=== PATIENT | male | born 1935 | race Caucasian/White ===

== ENCOUNTER 2017-03-03 08:54 | Inpatient (IN) | payer OTHER ==
[~2017-03-03] VITALS: Ht 177.8 cm; Wt 78.0 kg
[2017-03-03 08:54] VITALS: BP_SYST 105
--- NOTE | 2017-03-03 08:54 | NUR ---
BIB CARE BLS from home. Placed in room 05. Placed on correctional therapy teacher, blood pressure machine and pulse oximeter. To gown for exam. Side rails up. Report given to AMOR Olivas.
[2017-03-03] MEDS ORDERED: METO25TA6 PO (09:20)
[2017-03-03] MEDS ORDERED: FURO-149 PO (09:20)
[2017-03-03] MEDS ORDERED: MELA3TAB37 PO (09:20)
[2017-03-03] MEDS ORDERED: BUDE6HFA INH (09:20)
[2017-03-03] MEDS ORDERED: LORA10TA7 PO (09:20)
[2017-03-03] MEDS ORDERED: LEVO100T9 PO (09:20)
[2017-03-03] MEDS ORDERED: BENZ100C67 PO (09:20)
[2017-03-03] MEDS ORDERED: POTA20TA83 PO (09:20)
[2017-03-03] MEDS ORDERED: METO5TAB8 PO (09:20)
[2017-03-03] MEDS ORDERED: MORP10SO PO (09:20)
[2017-03-03] MEDS ORDERED: SPIR25TA4 PO (09:20)
[2017-03-03] MEDS ORDERED: TAMS0.4C96 PO (09:20)
[2017-03-03] MEDS ORDERED: TRAZ-126 PO (09:20)
--- NOTE | 2017-03-03 09:20 | NUR ---
Medication reconciliation completed with information provided by . Any prior medication reconciliation on file was reviewed and corrected.
--- NOTE | 2017-03-03 09:29 | NUR ---
Dr. Barroso at bedside for evaluation
--- NOTE | 2017-03-03 09:30 | NUR ---
Pt AAOx3, able to verbalize needs, unable to ambulate. Pt c/o intermittent back pain 05/30 that started few days ago. BLE with multiple bruises and swelling, non pitting. Buttock/sacral area noted with redness and 1 cm open wound with minor bleed, covered with dressing. Pt's states pt received morphine 0.5 mg this morning, but pain was unrelieved. No other obvious deformities. No other complaints or injuries per pt or noted.
[2017-03-03] MEDS ORDERED: HYDROmorphone 1 MG INJ. 1 MG/ML AMPUL IVP ONE (10:00)
[2017-03-03] MEDS ORDERED: NACL 0.9% 1,000 ML IV ONE (10:00)
--- NOTE | 2017-03-03 10:15 | NUR ---
Pt off unit to radiology.
--- NOTE | 2017-03-03 11:00 | NUR ---
Patient return to unit from radiology. Tolerated well.
[2017-03-03 11:09] LABS: BASOPHILS % (AUTO) 0.4 % (0.0-2.0); EOSINOPHILS # (AUTO) 0.1 K/uL (0.0-0.4); EOSINOPHILS % (AUTO) 1.3 % (0.0-4.0); HEMATOCRIT 25.6 % (36-54); HEMOGLOBIN 8.4 g/dL (14.0-18.0); LYMPHOCYTES # (AUTO) 0.4 K/uL (1.0-5.5); LYMPHOCYTES % (AUTO) 7.4 % (20.5-51.5); MEAN CORPUSCULAR HEMOGLOBIN 30 pg (27-31); MEAN CORPUSCULAR HGB CONC 33 % (32-36); MEAN CORPUSCULAR VOLUME 91 fL (79.0-98.0); MONOCYTES # (AUTO) 0.7 K/uL (0.0-1.0); MONOCYTES % (AUTO) 13.6 % (1.7-9.3); NEUTROPHILS # (AUTO) 3.9 K/uL (1.8-7.7); NEUTROPHILS % (AUTO) 77.3 % (40.0-70.0); PLATELET COUNT (AUTO) 240 K/uL (130-430); RED BLOOD CELL COUNT(AUTO) 2.81 MIL/uL (4.2-6.2); RED CELL DISTRIBUTION WIDTH 17.5 % (9.0-15.0); WHITE BLOOD COUNT (AUTO) 5.1 K/uL (4.8-10.8)
[2017-03-03 11:18] LABS: ANION GAP 5 (5-15); CALCIUM 8.8 mg/dL (8.4-11.0); CHLORIDE 94 mmol/L (98-107); GLUCOSE 128 mg/dL (70-99); POTASSIUM 5.9 mmol/L (3.5-5.1); SODIUM SERUM 129 mmol/L (136-145); UREA NITROGEN, BLOOD 71 mg/dL (8-21)
[2017-03-03 11:24] LABS: ALANINE AMINOTRANSFERASE 15 U/L (12-78); ALBUMIN 2.9 g/dL (3.4-4.8); ASPARTATE AMINOTRANSFERASE 27 U/L (10-37); TOTAL BILIRUBIN 0.7 mg/dL (0.0-1.0)
--- NOTE | 2017-03-03 11:30 | NUR ---
Repositioned pt to side with pillow. Tolerated well.
[2017-03-03 11:36] LABS: BILIRUBIN,URINE NEGATIVE (NEGATIVE); BLOOD, URINE NEGATIVE (NEGATIVE); CLARITY/URINE CLEAR (CLEAR); COLOR,URINE YELLOW (YELLOW); GLUCOSE,URINE NEGATIVE (NEGATIVE); KETONES,URINE NEGATIVE (NEGATIVE); LEUKOCYTE ESTERASE ,URINE 1+ (NEGATIVE); NITRITE, URINE NEGATIVE (NEGATIVE); PROTEIN URINE NEGATIVE (NEGATIVE)
[2017-03-03 11:57] LABS: BACTERIA,URINE RARE /HPF (None Seen); RBC,URINE 0-3 /HPF (0-3)
--- NOTE | 2017-03-03 12:05 | NUR ---
notified NA 129, K 5.9. EKG done
--- NOTE | 2017-03-03 12:35 | NUR ---
reminded NA 129, K 5.9, awaiting orders.
--- NOTE | 2017-03-03 12:50 | NUR ---
Patient will be admitted to care of Dr. Cortés. Admitted to med surg unit.
--- NOTE | 2017-03-03 13:00 | NUR ---
reminded NA 129, K 5.9, awaiting orders.
--- NOTE | 2017-03-03 13:34 | NUR ---
Transfer to [facility]. IV present no sign or symptom of infiltration. Dr. Cortés aware of NA and K.
--- NOTE | 2017-03-03 13:47 | NUR ---
ADMISSION: The patient, DIANE GARCIA, 81 y/o, M admitted by ARACELY CLEVELAND MD, was given written information regarding hospital policies, unit procedures and contact persons. .
[2017-03-03 14:00] VITALS: BP_SYST 100
[2017-03-03 16:09] VITALS: BP_SYST 92
--- NOTE | 2017-03-03 16:10 | NUR ---
NOTE: PATIENT IS RESTING COMFORTABLY IN BED. NO S/S OF DISTRESS OR SOB. PATIENT IS AWAKE AND ALERT, ABLE TO EXPRESS NEEDS, AND ASK FOR ASSISTANCE. IS AT BEDSIDE. WAITING TO TALK TO DR. CLEVELAND FOR ORDERS. CALL LIGHT IN REACH, BED IN LOWEST POSITION, AND WILL CONTINUE TO MONITOR.
--- NOTE | 2017-03-03 16:20 | NUR ---
WOUND EVALUATION: Late note for 1620 secondary to patient care. Wound Consult received from Dr. Cortés. Thank you, Dr. Cortés, for the consult. Patient received in a Ladson Bed with an Isoflex TRUE mattress, awake, alert, and oriented x 3. Patient is unable to turn in bed independently. Satinder Score is a 15. Past Medical History: Multiple falls, recent weight loss of over 30 lbs in one month, Sacral area pressure ulcer, CHF, chronic kidney disease, hypertension, COPD, hypothyroidism, depression, and back and neck surgeries. Recent Labs: WBC 5.1, RBC 2.81, hemoglobin 8.4, hematocrit 25.6, sodium 129, potassium 5.9, chloride 94, BUN 71, creatinine 2.60, glucose 128, alkaline phosphatase 355, BNP 498, albumin 2.9. Intrinsic factors that delay wound healing: CHF, COPD, chronic kidney disease, and hypoalbuminemia. Extrinsic factors that delay wound healing: Decreased mobility. Microbiology: Urine culture in progress. Right upper extremity has multiple skin tears. Wound Assessment: 1) Sacral Area/Buttock (superior aspect of Gluteal Sulcus): Prior stage III pressure ulcer, present on admission. Wound bed is 95% yellow tissue, 5% pink tissue. No odor, no drainage. Measures 1.2 cm x 0.5 cm x 0.2 cm. Recommend: Cleanse wound with normal saline. Place moisture barrier cream onto latia-wound. Put Venelex ointment onto wound bed. Cover with foam dressing. Perform wound care daily, and as needed for dressing soiling or dislodgement. 2) Buttock: Multiple small areas of non-intact skin with small scabs/eschar, present on admission. Left buttock has scant sanguineous drainage. The areas were too small to measure. Recommend: Cleanse site with mild soap and water. Pat dry. Place moisture barrier cream onto involved areas. Perform site care qid, and as needed for soiling. 3) Mid Back at T10 Spinal Level: Blanchable red discolored area, present on admission. Recommend: Cover with foam dressing. Perform site care daily, and as needed for dressing soiling or dislodgement. Do not place patient flat on his back at any time. 4) Bilateral Heels: Blanchable redness, present on admission. Recommend: Offload, elevate and float bilateral heels with pillows lengthwise at all times. Also recommend: Encourage and assist patient with repositioning side to side only every 2 hours with pillow support, and off-load pressure areas with pillows for pressure re-distribution. Offload, elevate and float bilateral heels with pillows lengthwise at all times. Perform skin care and monitor skin integrity Q shift. Use moisture barrier cream on buttocks and other moisture susceptible areas QID and as needed for soiling. Maintain patient on a low air-loss mattress.
--- NOTE | 2017-03-03 16:58 | NUR ---
CONSULTATION: REASON FOR CONSULT: CONSULTING PHYSICIAN: RAVEN LOPEZ MD ORDERED BY: ARACELY CLEVELAND MD SPOKE WITH CA FROM EXCHANGE
[2017-03-03] MEDS ORDERED: MORPHINE SULFATE 10 MG/5 ML ORAL SOL. UDC PO SCH (17:00)
[2017-03-03] MEDS ORDERED: METOLAZONE 5 MG TABLET PO SCH (17:00)
[2017-03-03] MEDS ORDERED: SODIUM POLYSTYRENE SULFONATE 15 GM/60 ML UDBTL PO ONE (17:00)
--- NOTE | 2017-03-03 17:05 | NUR ---
CONSULTATION: REASON FOR CONSULT: RF CONSULTING PHYSICIAN: JUAN CARLOS MIR Z MD ORDERED BY: ARACELY CLEVELAND MD SPOKE WITH KANDICE FROM EXCHANGE AND SAID DR SOLER IS SHIP ENGINES OPERATING ENGINEER FOR DR LOPEZ
--- NOTE | 2017-03-03 18:14 | NUR ---
NOTE: PATIENT IS RESTING COMFORTABLY IN BED. NO S/S OF DISTRESS OR SOB. DR. CLEVELAND WAS IN TO SEE THE PATIENT. ORDERS WERE PLACED. IS AT BEDSIDE. IV IS PATENT. CALL LIGHT IN REACH, BED IN LOWEST POSITION, AND WILL GIVE REPORT TO NIGHT NURSE.
[2017-03-03 19:00] VITALS: BP_SYST 110
[2017-03-03 20:17] LABS: IRON (SERUM) 37 mcg/dL (59-158)
[2017-03-03 20:18] LABS: TOTAL IRON BIND. CAPACITY 221 ug/dL (250-450)
[2017-03-03] MEDS: METOPROLOL TARTRATE 25 MG TABLET PO SCH (21:00)
[2017-03-03] MEDS ORDERED: BUDESONIDE/FORMOTEROL 160-4.5 mCg, 6 GM INHALER INH SCH (21:00)
[2017-03-03] MEDS ORDERED: FUROSEMIDE 40 MG TABLET PO SCH (21:00)
--- NOTE | 2017-03-03 21:30 | NUR ---
paged paged Dr Cortés [facility] . s/w Carla.
[2017-03-03] MEDS: MORPHINE SULFATE 10 MG/5 ML ORAL SOL. UDC PO PRN (22:39)
[2017-03-03] MEDS: FUROSEMIDE 40 MG/4 ML VIAL IVP SCH (22:41)
[2017-03-03] MEDS: LEVOTHYROXINE SODIUM 0.1 MG TABLET PO SCH (22:42)
[2017-03-03] MEDS: TAMSULOSIN HCL 0.4 MG CAP PO SCH (22:42)
[2017-03-03] MEDS: traZODone HCL 50 MG TABLET (DESYREL) PO SCH (22:42)
[2017-03-03] MEDS: BENZONATATE 100 MG CAPSULE (TESSALON) PO SCH (22:43)
[2017-03-03 23:31] VITALS: BP_SYST 105
[2017-03-04] MEDS: MORPHINE SULFATE 10 MG/5 ML ORAL SOL. UDC PO PRN ×5 (02:18→23:59)
--- NOTE | 2017-03-04 06:54 | NUR ---
pt.presented constipation x5 days per the pt's recall.kayexalate was administered:K+ value:5.9 the medications induced multiple stools:initial stool:wash basin:recorded formed amount:5000 ml.foul odor was paged i conveyed to the foul odor but formed stool: did not deem it necessary to order stool:c-diff.i have administered morphine:10mg/5ml elixir x3 to the pt;pt.had c/o back: lower.pt.has provided stool sample:ob,and urine sample:u/cx.collected.room air:o2 sat%=96.call light/telephone placed w/in the pt's reach.
[2017-03-04 07:07] LABS: BASOPHILS % (AUTO) 0.6 % (0.0-2.0); EOSINOPHILS % (AUTO) 0.7 % (0.0-4.0); HEMOGLOBIN 8.7 g/dL (14.0-18.0); LYMPHOCYTES # (AUTO) 0.3 K/uL (1.0-5.5); LYMPHOCYTES % (AUTO) 5.3 % (20.5-51.5); MEAN CORPUSCULAR HEMOGLOBIN 30 pg (27-31); MEAN CORPUSCULAR HGB CONC 33 % (32-36); MEAN CORPUSCULAR VOLUME 91 fL (79.0-98.0); MONOCYTES # (AUTO) 0.8 K/uL (0.0-1.0); MONOCYTES % (AUTO) 14.2 % (1.7-9.3); NEUTROPHILS # (AUTO) 4.3 K/uL (1.8-7.7); NEUTROPHILS % (AUTO) 79.2 % (40.0-70.0); PLATELET COUNT (AUTO) 249 K/uL (130-430); RED BLOOD CELL COUNT(AUTO) 2.85 MIL/uL (4.2-6.2); WHITE BLOOD COUNT (AUTO) 5.4 K/uL (4.8-10.8)
[2017-03-04 07:21] LABS: ALANINE AMINOTRANSFERASE 12 U/L (12-78); ALBUMIN 2.7 g/dL (3.4-4.8); ANION GAP 6 (5-15); ASPARTATE AMINOTRANSFERASE 26 U/L (10-37); CALCIUM 8.7 mg/dL (8.4-11.0); CHLORIDE 93 mmol/L (98-107); CHOLESTEROL 112 mg/dL (<200); CREATININE 2.27 mg/dL (0.55-1.30); GLUCOSE 134 mg/dL (70-99); HDL CHOLESTEROL 33 mg/dL (>45); LDL CHOLESTEROL 65 mg/dL (<100); PHOSPHORUS 5.3 mg/dL (2.7-4.5); POTASSIUM 4.3 mmol/L (3.5-5.1); SODIUM SERUM 129 mmol/L (136-145); THYROID STIMULATING HORMONE 3.38 uIu/mL (0.34-4.82); TOTAL BILIRUBIN 0.8 mg/dL (0.0-1.0); TOTAL PROTEIN, SERUM 8.7 g/dL (6.4-8.3); TRIGLYCERIDES 82 mg/dL (30-150); UREA NITROGEN, BLOOD 65 mg/dL (8-21)
[2017-03-04 07:51] LABS: IRON (SERUM) 36 mcg/dL (59-158); TOTAL IRON BIND. CAPACITY 211 ug/dL (250-450)
[2017-03-04 08:00] VITALS: BP_SYST 91
[2017-03-04] MEDS: METOPROLOL TARTRATE 25 MG TABLET PO SCH ×2 (08:23→21:34)
[2017-03-04] MEDS: FUROSEMIDE 40 MG/4 ML VIAL IVP SCH ×2 (08:24→21:36)
[2017-03-04] MEDS: BENZONATATE 100 MG CAPSULE (TESSALON) PO SCH ×3 (08:28→21:35)
[2017-03-04] MEDS: FLUTICASONE/VILANTEROL 1 EACH BLST.W.DEV INH SCH (08:51)
[2017-03-04] MEDS: BALSAM PERU/CASTOR OIL 60 GM OINT...G. TP SCH (08:51)
--- NOTE | 2017-03-04 11:02 | NUR ---
PATIENT REPOSITIONED. STATES HE HAS RIGHT HIP PAIN R/T POSITIONING. GIVEN MORPHINE FOR PAIN WELL
--- NOTE | 2017-03-04 11:23 | NUR ---
Nutrition Update Satinder Scale 12 noted. Pt admitted for decubitus ulcer. Diet: cardiac BMI: 24.8 kg/m2 RD to follow per nutrition care standards.
[2017-03-04] MEDS ORDERED: AZITHROMYCIN 250 MG TABLET PO ONE (11:45)
--- NOTE | 2017-03-04 12:04 | NUR ---
DC PLANNING: RECEIVED A DC PLAN --[facility] EVALU[facility]. FAXED CLINICALS TO [facility] FAX# [phone], TEL# [phone]. STILL AWAITING CONSULTS.
--- NOTE | 2017-03-04 12:15 | NUR ---
AWAITING ORDERED AND SCHEDULED ANTIBIOTICS FROM PHARMACY
[2017-03-04 12:39] VITALS: BP_SYST 107
[2017-03-04] MEDS: IPRATROPIUM/ALBUTEROL SULFATE 3 ML AMPUL.NEB INH SCH ×2 (13:00→20:13)
[2017-03-04] MEDS: PIPERACILLIN/TAZO 2.25G/DEX-IS 50 ML IV SCH ×3 (13:15→23:51)
--- NOTE | 2017-03-04 13:18 | NUR ---
PATIENT IS VERY LETHARGIC, UNABLE TO SWALLOW SAFELY. HOLDING LUNCH AND PO MEDICATION UNTIL MORPHINE WEARS OFF AND PATIENT IS MORE ALERT. FAMILY IS AT BEDSIDE. IV ANTIBIOTICS STARTED
--- NOTE | 2017-03-04 15:42 | NUR ---
PATIENT REMAINS VERY LETHARGIC AND DIFFICULT TO AWAKEN. PO MEDICATIONS HELD PENDING PATIENT MORE ALERT AND ABLE TO SWALLOW
[2017-03-04 16:38] VITALS: BP_SYST 107
[2017-03-04 16:41] VITALS: BP_SYST 103
--- NOTE | 2017-03-04 16:48 | NUR ---
AT BEDSIDE. SHE HAS QUESTIONS ABOUT PATIENT'S LETHARGY. EXPLAINED HE HAS BEEN SLEEPING SINCE MORPHINE ADMINISTRATION. SHE IS WORRIED THAT HE MISSED LUNCH. INFORMED HER DINNER WILL BE HERE SOON AND WE CAN TRY TO GET HIM TO EAT THEN.
--- NOTE | 2017-03-04 18:28 | NUR ---
PATIENT REPOSITIONED WITH HELP OF
[2017-03-04 20:00] VITALS: BP_SYST 109
--- NOTE | 2017-03-04 20:00 | NUR ---
Initial PM Note Fully AAO x3. Speech is clear. Saline Lock patent in RAC. Morphine 10mg was given po at 194 for c/o tail bone pain. Fall and safety precautions are in place.
[2017-03-04] MEDS: TAMSULOSIN HCL 0.4 MG CAP PO SCH (21:34)
[2017-03-04] MEDS: LEVOTHYROXINE SODIUM 0.1 MG TABLET PO SCH (21:35)
[2017-03-04] MEDS: traZODone HCL 50 MG TABLET (DESYREL) PO SCH (21:35)
--- NOTE | 2017-03-04 21:36 | NUR ---
HS Medications HS medications given po and pt able to swallow medications without difficulty. Pt also able to eat 1 cup of Jello gelatin without difficulty swallowing.
--- NOTE | 2017-03-04 23:59 | NUR ---
Pain Medication Morphine 10mg given po for c/o tail bone pain with relief. Pt ate another cup of Jello gelatin without difficulty swallowing.
[2017-03-05] VITALS: BP_SYST 93
[2017-03-05] MEDS: IPRATROPIUM/ALBUTEROL SULFATE 3 ML AMPUL.NEB INH SCH ×4 (01:28→19:51)
--- NOTE | 2017-03-05 02:00 | NUR ---
Rounds Pt is sleeping comfortably in bed. Call light is with pt and bed alarm is on.
--- NOTE | 2017-03-05 05:00 | NUR ---
Rounds Pt is sleeping without any distress noted. Call light is with pt and bed alarm is on.
[2017-03-05 05:19] VITALS: BP_SYST 91
[2017-03-05] MEDS: PIPERACILLIN/TAZO 2.25G/DEX-IS 50 ML IV SCH ×3 (05:31→17:33)
--- NOTE | 2017-03-05 06:57 | NUR ---
Closing Note Pt is resting comfortably in bed. All pt's needs were attended to. No fall or injury noted this shift. Will endorse to day shift nurse.
[2017-03-05 07:44] LABS: ANION GAP 8 (5-15); CALCIUM 8.4 mg/dL (8.4-11.0); CHLORIDE 89 mmol/L (98-107); GLUCOSE 128 mg/dL (70-99); POTASSIUM 3.5 mmol/L (3.5-5.1); SODIUM SERUM 128 mmol/L (136-145); UREA NITROGEN, BLOOD 58 mg/dL (8-21)
[2017-03-05 08:00] VITALS: BP_SYST 96
--- NOTE | 2017-03-05 08:00 | NUR ---
AT BEDSIDE. STATES PATIENT NEEDS TO BE TURNED AND THAT HE ATE SMALL AMT OF HIS BREAKFAST
[2017-03-05 08:07] LABS: BASOPHILS % (AUTO) 0.4 % (0.0-2.0); EOSINOPHILS # (AUTO) 0.1 K/uL (0.0-0.4); HEMATOCRIT 25.7 % (36-54); HEMOGLOBIN 8.5 g/dL (14.0-18.0); LYMPHOCYTES # (AUTO) 0.5 K/uL (1.0-5.5); LYMPHOCYTES % (AUTO) 9.1 % (20.5-51.5); MEAN CORPUSCULAR HEMOGLOBIN 30 pg (27-31); MEAN CORPUSCULAR HGB CONC 33 % (32-36); MEAN CORPUSCULAR VOLUME 90 fL (79.0-98.0); MONOCYTES # (AUTO) 0.9 K/uL (0.0-1.0); MONOCYTES % (AUTO) 15.4 % (1.7-9.3); NEUTROPHILS # (AUTO) 4.2 K/uL (1.8-7.7); NEUTROPHILS % (AUTO) 74.1 % (40.0-70.0); PLATELET COUNT (AUTO) 251 K/uL (130-430); RED BLOOD CELL COUNT(AUTO) 2.85 MIL/uL (4.2-6.2); WHITE BLOOD COUNT (AUTO) 5.7 K/uL (4.8-10.8)
[2017-03-05] MEDS: FUROSEMIDE 40 MG/4 ML VIAL IVP SCH ×2 (09:00→21:35)
[2017-03-05] MEDS: METOPROLOL TARTRATE 25 MG TABLET PO SCH ×2 (09:00→21:00)
[2017-03-05] MEDS: BENZONATATE 100 MG CAPSULE (TESSALON) PO SCH ×3 (09:02→21:35)
[2017-03-05] MEDS: AZITHROMYCIN 250 MG TABLET PO SCH (09:02)
[2017-03-05] MEDS: BALSAM PERU/CASTOR OIL 60 GM OINT...G. TP SCH (09:03)
[2017-03-05] MEDS: FLUTICASONE/VILANTEROL 1 EACH BLST.W.DEV INH SCH (09:07)
--- NOTE | 2017-03-05 09:10 | NUR ---
PATIENT HAS MILD EPISTAXIX IN R NARE. PLACED PETROLEUM GAUZE AND ICE PACK TO SLOW BLEEDING.
[2017-03-05] MEDS ORDERED: EPOETIN ALFA 4,000 UNITS/ML VIAL SUBCUT ONE (11:30)
[2017-03-05 12:28] VITALS: BP_SYST 95
--- NOTE | 2017-03-05 14:20 | NUR ---
PATIENT NOTED TO HAVE SMALL AMT OF EPISTAXIS AGAIN. WOUNDS DRESSED AND CLEANED
[2017-03-05] MEDS: SOD FERRIC GLUC COMPLEX/SUC 125 MG in NS 100 ML IV SCH (14:59)
[2017-03-05 16:29] VITALS: BP_SYST 94
[2017-03-05] MEDS: MORPHINE SULFATE 10 MG/5 ML ORAL SOL. UDC PO PRN (18:31)
[2017-03-05 20:41] VITALS: BP_SYST 102
[2017-03-05] MEDS: TAMSULOSIN HCL 0.4 MG CAP PO SCH (21:35)
[2017-03-05] MEDS: LEVOTHYROXINE SODIUM 0.1 MG TABLET PO SCH (21:35)
[2017-03-05] MEDS: traZODone HCL 50 MG TABLET (DESYREL) PO SCH (21:35)
--- NOTE | 2017-03-05 21:45 | NUR ---
Patient awake alert Reposition and Turning off loading with pillows used & helpful comfort measures implemented call alvarado with patient .
[2017-03-06] VITALS (7 sets, daily range): BP systolic 85–114
[2017-03-06] MEDS: PIPERACILLIN/TAZO 2.25G/DEX-IS 50 ML IV SCH ×4 (00:04→17:33)
--- NOTE | 2017-03-06 00:15 | NUR ---
ZOSYN 2.25 GM IVPB administer as ordered no allergic reaction noted skin dry warm .
--- NOTE | 2017-03-06 00:20 | NUR ---
MORPHINE SULFATE 10 MG PO given for general discomfort & helpful , PT resting this hour .
[2017-03-06] MEDS: IPRATROPIUM/ALBUTEROL SULFATE 3 ML AMPUL.NEB INH SCH ×3 (01:00→13:57)
--- NOTE | 2017-03-06 01:49 | NUR ---
Hourly Rounding patient resting , assist for position change kept clean and dry as needed / .
--- NOTE | 2017-03-06 05:57 | NUR ---
Patient resting this hour , assist for position change chest movement symmetrical no complaints made .
--- NOTE | 2017-03-06 08:00 | NUR ---
OPENING NOTE PATIENT IS ASLEEP, VERY DROWSY WHEN AWAKE, DENIES ANY HUNGER FOR BREAKFAST. REPORTS MILD PAIN WITH MOVEMENT AND ADJUSTMENT WHILE IN BED. NO SOB OR DISTRESS NOTED. PAGED RE LOW BLOOD PRESSURE
--- NOTE | 2017-03-06 08:22 | NUR ---
SPOKE W DR CLEVELAND RE PATIENT'S BP 85/47, PER THIS IS OK. NO NEW ORDERS
[2017-03-06] MEDS: METOPROLOL TARTRATE 25 MG TABLET PO SCH ×2 (09:00→22:37)
[2017-03-06] MEDS: FUROSEMIDE 40 MG/4 ML VIAL IVP SCH ×2 (09:00→21:00)
--- NOTE | 2017-03-06 09:00 | NUR ---
DISCHARGE PLANNING Faxed home health referral to [phone] [phone]. Will follow up. Addendum: 03/06/17 at 1120 by Jasmyn TABARES Per , Faxed home health and DME referral to [phone]. Called and spoke with Jayne in intake dept who confirmed patient has been getting continued home health and will order requested DME for hospital bed with air loss mattress and follow up. DCP will follow up. Addendum: 03/06/17 at 1540 by Jasmyn Lo DP spoke with Dominga in intake dept who confirmed faxed home health order and DME was received. Per Dominga faxed DME order for hospital bed with air loss mattress to [facility], received confirmation order was received and currently being processed [facility] [phone]. Will follow up. AMOR Johnson was updated.
[2017-03-06] MEDS: AZITHROMYCIN 250 MG TABLET PO SCH (09:23)
[2017-03-06] MEDS: FLUTICASONE/VILANTEROL 1 EACH BLST.W.DEV INH SCH (09:23)
[2017-03-06] MEDS: BENZONATATE 100 MG CAPSULE (TESSALON) PO SCH ×3 (09:23→22:35)
[2017-03-06] MEDS: BALSAM PERU/CASTOR OIL 60 GM OINT...G. TP SCH (09:34)
--- NOTE | 2017-03-06 10:20 | NUR ---
AWAITING APPROVAL INFORMATION. CONSTANTIN HAS BEEN INFORMED HE IS DISCHARGED AND IS VERY ANXIOUS TO LEAVE
--- NOTE | 2017-03-06 11:15 | NUR ---
KAVON PLANNING Order for hospital bed w [facility] per pt/ request. kavon Vines event planner, called & spoke w [place] [facility] [place] her the order & she will order it. Pt/ willing to pay for upgrade or for bed if needed. Called & informed Stephanie.
[2017-03-06] MEDS: SOD FERRIC GLUC COMPLEX/SUC 125 MG in NS 100 ML IV SCH (12:02)
--- NOTE | 2017-03-06 12:15 | NUR ---
INFORMED WE ARE AWAITING HOME HEALTH APPROVAL, PATIENT RECEIVING IRON IV AND ANTIBIOTICS IV
--- NOTE | 2017-03-06 14:28 | NUR ---
SKIN TEARS ON ARMS REDRESSED. NOTED TO HAVE GAUZE PLACED DIRECTLY ON WOUNDS BY SEW OUT OPERATOR. UPON REMOVAL, DESPITE USING SALINE TO MOISTEN GAUZE FIRST, MANY OF THE SKIN TEARS BEGAN BLEEDING AGAIN. CLEANED WITH NS, COVERED WITH OIL EMULSION AND NON ADHERENT PAD AND THEN GAUZE AND RE-WRAPPED FOR HOME. PHOTOGRAPHS TAKEN. PATIENT TOLERATED WELL. PATIENT STATES HE IS VERY READY TO GO HOME. AWAITING CONFIRMATION FROM CASE MANAGEMENT REGARDING HOME HEALTH COMPANY TO ASSUME CARE OF PATIENT
[2017-03-06] MEDS: MORPHINE SULFATE 10 MG/5 ML ORAL SOL. UDC PO PRN ×2 (17:34→21:59)
--- NOTE | 2017-03-06 20:30 | NUR ---
OPENING NOTES PATIENT IS A/OX4. NO SIGNS OF DISTRESS. BREATHING IS NON LABORED VITAL SIGNS ARE STABLE. DRESSING TO WOUNDS ARE CLEAN DRY AND INTACT. PATIENT HAS NO COMPLAINTS OF PAIN AT THIS TIME. PATIENT WAS ENCOURAGED TO MORE OF HIS DINNER. PATIENT STATED THAT HE DOES NOT HAVE MUCH OF AN APPETITE. CALL LIGHT IS WITHIN REACH. BED ALARM IS ON. SAFETY MEASURES ARE IN PLACE. PATIENT INSTRUCTED TO CALL FOR ASSISTANCE. PATIENT VERBALIZED UNDERSTANDING. WILL CONTINUE TO MONITOR.
[2017-03-06] MEDS: traZODone HCL 50 MG TABLET (DESYREL) PO SCH (22:35)
[2017-03-06] MEDS: LEVOTHYROXINE SODIUM 0.1 MG TABLET PO SCH (22:35)
[2017-03-06] MEDS: TAMSULOSIN HCL 0.4 MG CAP PO SCH (22:36)
--- NOTE | 2017-03-06 23:45 | NUR ---
PATIENT CARE PATIENT WAS GIVEN ICE WATER. NO SIGNS OF DISTRESS. BREATHING IS NON LABORED. WILL CONTINUE TO MONITOR.
[2017-03-07] VITALS: BP_SYST 120
[2017-03-07] MEDS: PIPERACILLIN/TAZO 2.25G/DEX-IS 50 ML IV SCH ×3 (01:09→12:00)
--- NOTE | 2017-03-07 01:45 | NUR ---
ROUNDS PATIENT IS IN BED SLEEPING. NO SIGNS OF DISTRESS. BREATHING IS NON LABORED. CALL LIGHT IS WITHIN REACH. BED ALARM IS ON. WILL CONTINUE TO MONITOR.
[2017-03-07 02:28] LABS: PROSTATE SPECIFIC AG TOTAL <0.1 ng/mL (0.0-4.0)
[2017-03-07] MEDS: MORPHINE SULFATE 10 MG/5 ML ORAL SOL. UDC PO PRN ×2 (04:01→08:49)
--- NOTE | 2017-03-07 04:26 | NUR ---
PATIENT CARE PATIENT WAS GIVEN CRANBERRY JUICE. PATIENT IS IN BED RESTING COMFORTABLY. WILL CONTINUE TO MONITOR.
[2017-03-07 04:32] LABS: % FREE PSA >20.0 % (.); FOLATE (FOLIC ACID) 12.8 ng/mL (>3.0); FREE PSA 0.02 ng/mL
[2017-03-07 04:46] VITALS: BP_SYST 102
--- NOTE | 2017-03-07 05:00 | NUR ---
WOUND CARE WOUND CARE WAS PERFORMED PER WOUND CARE ORDERS. PATIENT TOLERATED IT WELL. PICTURES WERE TAKEN OF WOUNDS AND PUT INTO CHART.
--- NOTE | 2017-03-07 07:44 | NUR ---
CLOSING NOTES PATIENT IS IN BED RESTING. NO SIGNS OF DISTRESS. BREATHING IS NON LABORED. IV IS PATENT. BED ALARM IS ON. CALL LIGHT IS WITHIN REACH. REPORT GIVEN TO THE MORNING NURSE.
[2017-03-07 08:08] VITALS: BP_SYST 118
--- NOTE | 2017-03-07 08:35 | NUR ---
OPENING NOTE: RECEIVED REPORT FROM NIGHT NURSE. PATIENT IS RESTING COMFORTABLY IN BED. NO S/S OF DISTRESS OR SOB. PATIENT IS AWAKE AND ALERT. IV IS PATENT AND INFUSING. VITAL SIGNS WNL, ASSESSMENT COMPLETE. CALL LIGHT IN REACH, BED IN LOWEST POSITION, AND WILL CONTINUE TO MONITOR.
[2017-03-07] MEDS: AZITHROMYCIN 250 MG TABLET PO SCH (08:47)
[2017-03-07] MEDS: METOPROLOL TARTRATE 25 MG TABLET PO SCH (08:47)
[2017-03-07] MEDS: BENZONATATE 100 MG CAPSULE (TESSALON) PO SCH (08:47)
[2017-03-07] MEDS: FLUTICASONE/VILANTEROL 1 EACH BLST.W.DEV INH SCH (08:47)
[2017-03-07] MEDS: FUROSEMIDE 40 MG/4 ML VIAL IVP SCH (08:49)
[2017-03-07] MEDS: BALSAM PERU/CASTOR OIL 60 GM OINT...G. TP SCH (08:50)
--- NOTE | 2017-03-07 10:00 | NUR ---
NOTE: PATIENT IS RESTING COMFORTABLY IN BED. NO S/S OF DISTRESS OR SOB. PATIENT IS AWAKE AND ALERT. CALL LIGHT IN REACH, BED IN LOWEST POSITION, AND WILL CONTINUE TO MONITOR.
[2017-03-07] MEDS ORDERED: LOPERAMIDE HCL 2 MG CAPSULE PO ONE (11:15)
[2017-03-07 11:45] VITALS: BP_SYST 118
--- NOTE | 2017-03-07 12:00 | NUR ---
NOTE: PATIENT IS RESTING COMFORTABLY IN BED. NO S/S OF DISTRESS OR SOB. IS AT BEDSIDE. NO NEEDS AT THIS POINT, PATIENTS RIDE WILL BE HERE SHORTLY TO TAKE HOME. CALL LIGHT IN REACH, BED IN LOWEST POSITION, AND WILL CONTINUE TO MONITOR.
[2017-03-07] MEDS: SOD FERRIC GLUC COMPLEX/SUC 125 MG in NS 100 ML IV SCH (12:01)
--- NOTE | 2017-03-07 12:31 | NUR ---
Nutrition F/U Admitting Diagnosis Decubitus ulcer, cachexia, mild protein malnutrition Reviewed Pertinent Medical/Surgical Hx Significant Other Patient Medical Record Medical History Comment: CHF, CKD, HTN, COPD, hypothyroidism, depression per MD notes Subjective Information Pt seen resting in bed, seemingly lethargic, w/ at bedside. Pt pending D/C home w/ home health. Per , pt ate at most, 25% of breakfast. She noted completion of Total cereal, orange juice, and coffee. She also reported that pt particularly enjoys sherbert, and would like for pt to receive some w/ lunch. RD notified [facility] staff to provide. stated that she weighed pt day prior to admission, and pt weighed 160.9 lb. Bedscale wt read 181 lb -- likely inaccurate as bedscale may not have been calibrated. Pt is not meeting optimal nutritional needs. RD encouraged to continue to offer pt small meals throughout the day w/ good sources of protein. Pt is not appropriate for nutrition education. Current Diet Order/Nutrition Support Cardiac x3 days Patient/Significant Other Able To Verbalize Education Provided Not Indicated Pertinent Medications ferrous sodium gluconate complex/NaCl IV, zithromax, piperacillin/tazobactam, synthroid Pertinent Labs Na 128 L, BG 128 H, BUN 58 H, CRE 2.3 H, ALB 2.7 L, BNP 737 H (03/04/17), H/H 8.5 L/25.7 L Height (Feet) 5 feet Height (Inches) 10.00 inches Weight (Pounds) 172 pounds (admission) Weight (Calculated Kilograms) 78.036485 kilograms Patient Weight 78.018 kg Body Mass Index 24.68 kg/m2 Usual Weight 196 lbs %UBW 88 %IBW 103 [place]/Adjusted Body Weight IBW: 166 lb, 76 kg Recent Weight Change Yes - Possible 24 wt loss within 5-6 weeks; 12% wt change Weight Status Appropriate Gastrointestinal Symptoms None Last BM 03/06/17 Usual Diet At Home Low salt, plenty of fruits and vegetables Skin Integrity Comment: Satinder scale: 16; per Primer Supervisor note 03/03/17: 1) Sacral Area/Buttock (superior aspect of Gluteal Sulcus): Prior stage III pressure ulcer, present on admission. 2) Buttock: Multiple small areas of non-intact skin with small scabs/eschar, present on admission. 3) Mid Back at T10 Spinal Level: Blanchable red discolored area, present on admission. 4) Bilateral Heels: Blanchable redness, present on admission. Current % PO Poor -- slight improvement since admission Estimated Energy Expenditure (kcals/day) 5784-2836 kcal/day (BEE x 1-1.2 CBW for maintenance) Estimated Protein Required (g/day) 47-62 gm/day (0.6-0.8 gm/kg CBW for CKD) Estimated Fluid Required (l/day) Per MD (CHF/CKD) Problem/Etiology/Signs/Symptoms Inadequate nutritional intakes related to lethargy as evidenced by poor appetite. Expected Outcomes/Goals - Monitor appetite and PO intakes w/ goal of pt meeting at least 75% of estimated nutritional needs, labs trending WNL, normal GI function, and skin integrity/wt maintenance Dietitian Recommendations * Recommend continuing cardiac diet per MD * Recommend encourage increase PO intakes Follow Up High Risk: F/U in 2-3 days
[2017-03-07 12:53] VITALS: BP_SYST 98
--- NOTE | 2017-03-07 13:58 | NUR ---
PHYSICAL THERAPY CO-SIGN The Physical Therapy Progress Notes documented by Bottom Turner have been reviewed. Reviewed/Co-Signed by: Dion Rose PT Documentation Done by: RANDELL NOVA PTA PT PROGRESSING STEADILY TOWARDS REHAB GOALS SET. Addendum: 03/07/17 at 1359 by Dion Rose PT Amended: Links added.
--- NOTE | 2017-03-08 16:33 | NUR ---
Discharge Follow Up Phone Call: CAMPAIGN ANALYST called and left a voice mail for pt ([phone]). CAMPAIGN ANALYST called and spoke with pt's , Stephanie ([phone]). Pt's states that pt has been having diarrhea so they have put in a call to pt's PCP's office; pt is also going to receive a visit from the home health nurse today; pt's prescriptions have been filled; there are no questions regarding discharge or medication instructions; pt's will schedule pt's PCP and [employer] follow up appointments. CAMPAIGN ANALYST offered to assist with scheduling pt's follow up appointments, but pt's states that she will schedule the appointments. Pt's states that they received pt's hospital bed with air loss mattress on 03/06/17. Pt's did not express any other needs or concerns and denied the need for additional follow up at this time. No further follow up phone calls required at this time.
[2017-03-08] MEDS ORDERED: CEPH250C PO (21:57)
[2017-03-09 00:01] LABS: FERRITIN 530 ng/mL (30-400)
== END 2017-03-07 13:15 | disposition home health service (06) | DRG 291 ==
LOC: SED 08:54 → SMU 12:43
PROVIDERS: ADMIT Internal Medicine; ATTEND Internal Medicine
DX: I13.0 Hypertensive heart and chronic kidney disease with heart failure and stage 1 through stage 4 chronic kidney disease, or unspecified chronic kidney disease (principal); I50.43 Acute on chronic combined systolic (congestive) and diastolic (congestive) heart failure; J18.9 Pneumonia, unspecified organism; N39.0 Urinary tract infection, site not specified; E44.1 Mild protein-calorie malnutrition; J90 Pleural effusion, not elsewhere classified; N17.9 Acute kidney failure, unspecified; N18.4 Chronic kidney disease, stage 4 (severe); I42.0 Dilated cardiomyopathy; E03.9 Hypothyroidism, unspecified; F32.9 Major depressive disorder, single episode, unspecified; W19.XXXA Unspecified fall, initial encounter; R29.6 Repeated falls; J44.9 Chronic obstructive pulmonary disease, unspecified; K70.31 Alcoholic cirrhosis of liver with ascites; L89.159 Pressure ulcer of sacral region, unspecified stage; I35.0 Nonrheumatic aortic (valve) stenosis; E87.5 Hyperkalemia; D64.9 Anemia, unspecified; K59.00 Constipation, unspecified; Z66 Do not resuscitate; N40.0 Benign prostatic hyperplasia without lower urinary tract symptoms; I87.8 Other specified disorders of veins; Z88.1 Allergy status to other antibiotic agents; Z79.899 Other long term (current) drug therapy; Y93.89 Activity, other specified; Y92.89 Other specified places as the place of occurrence of the external cause; Y99.8 Other external cause status; Z68.24 Body mass index [BMI] 24.0-24.9, adult; Z87.891 Personal history of nicotine dependence; Z95.810 Presence of automatic (implantable) cardiac defibrillator; R04.0 Epistaxis
CPT/HCPCS: 36415; 71010; 71250-TC; 72170-TC; 72220-TC; 74000-TC; 76700-TC; 80048; 80053; 80061; 81000-TC; 82272; 82607; 82728; 82746; 83036; 83540-TC; 83550-TC; 83735-TC; 83880; 84100-TC; 84153; 84439; 84443-TC; 85025; 86886; 86900; 86901; 87086; 93005; 93306; 94640; 94760; 96374; 97116-GP; 97530-GP; 99285; J0885; J1170; J1940; J2543; J2916; J7030; J7050; Q0144

== ENCOUNTER 2017-03-08 21:08 | Inpatient (IN) | payer OTHER ==
[~2017-03-08] VITALS: Ht 180.3 cm; Wt 81.8 kg
[~2017-03-08 21:08] MED LIST: BUDE6HFA INH; FURO-149 PO; LEVO100T9 PO; MELA3TAB37 PO; METO25TA6 PO; MORP10SO PO; POTA20TA83 PO; TAMS0.4C96 PO; TRAZ-126 PO
[2017-03-08 21:32] VITALS: BP_SYST 89
[2017-03-08] MEDS ORDERED: CEPH250C PO (21:57)
[2017-03-08] MEDS ORDERED: PROCHLORPERAZINE EDISYLATE 10 MG/2 ML VIAL IVP ONE (22:15)
[2017-03-08] MEDS ORDERED: NACL 0.9% 1,000 ML IV ONE (22:15)
[2017-03-08 22:35] LABS: BILIRUBIN,URINE NEGATIVE (NEGATIVE); CLARITY/URINE SL HAZY (CLEAR); COLOR,URINE YELLOW (YELLOW); GLUCOSE,URINE NEGATIVE (NEGATIVE); KETONES,URINE TRACE (NEGATIVE); LEUKOCYTE ESTERASE ,URINE 1+ (NEGATIVE); NITRITE, URINE NEGATIVE (NEGATIVE); PROTEIN URINE 1+ (NEGATIVE); UROBILINOGEN,URINE 0.2 (0.2-1.0)
[2017-03-08 22:43] LABS: BASOPHILS % (AUTO) 0.2 % (0.0-2.0); EOSINOPHILS % (AUTO) 0.5 % (0.0-4.0); HEMATOCRIT 25.4 % (36-54); HEMOGLOBIN 8.4 g/dL (14.0-18.0); LYMPHOCYTES # (AUTO) 0.3 K/uL (1.0-5.5); LYMPHOCYTES % (AUTO) 3.1 % (20.5-51.5); MEAN CORPUSCULAR HEMOGLOBIN 30 pg (27-31); MEAN CORPUSCULAR HGB CONC 33 % (32-36); MEAN CORPUSCULAR VOLUME 90 fL (79.0-98.0); MONOCYTES # (AUTO) 0.7 K/uL (0.0-1.0); MONOCYTES % (AUTO) 8.7 % (1.7-9.3); NEUTROPHILS # (AUTO) 7.3 K/uL (1.8-7.7); NEUTROPHILS % (AUTO) 87.5 % (40.0-70.0); PLATELET COUNT (AUTO) 250 K/uL (130-430); RED BLOOD CELL COUNT(AUTO) 2.81 MIL/uL (4.2-6.2); WHITE BLOOD COUNT (AUTO) 8.3 K/uL (4.8-10.8)
[2017-03-08 22:56] LABS: BLOOD, URINE TRACE (NEGATIVE)
[2017-03-08 22:59] LABS: INR 1.1 (0.80-1.20); PROTHROMBIN TIME 12.1 SECS (9.5-12.5)
[2017-03-08 23:00] LABS: ANION GAP 10 (5-15); CALCIUM 9.1 mg/dL (8.4-11.0); CHLORIDE 85 mmol/L (98-107); CREATININE 3.93 mg/dL (0.55-1.30); GLUCOSE 129 mg/dL (70-99); POTASSIUM 4.4 mmol/L (3.5-5.1); SODIUM SERUM 126 mmol/L (136-145); UREA NITROGEN, BLOOD 69 mg/dL (8-21)
[2017-03-08 23:04] LABS: ALANINE AMINOTRANSFERASE 16 U/L (12-78); ALBUMIN 2.9 g/dL (3.4-4.8); ASPARTATE AMINOTRANSFERASE 51 U/L (10-37); LIPASE 289 U/L (73-393); TOTAL BILIRUBIN 1.1 mg/dL (0.0-1.0); TOTAL PROTEIN, SERUM 9.4 g/dL (6.4-8.3)
[2017-03-08 23:17] LABS: BACTERIA,URINE FEW /HPF (None Seen)
[2017-03-08 23:18] LABS: YEAST,URINE Few /HPF (None Seen)
[2017-03-09] MEDS ORDERED: AZITHROMYCIN 500 MG in NS 250 ML IV ONE (00:15)
[2017-03-09] MEDS ORDERED: cefTRIAXone 1 GM in D5W 50 ML IV ONE (00:15)
[2017-03-09] MEDS ORDERED: cefTRIAXone 1 GM VIAL ONE (00:30)
[2017-03-09] MEDS ORDERED: AZITHROMYCIN 500 MG/VIAL (ZITHROMAX) IV ONE (00:30)
[2017-03-09] MEDS ORDERED: ONDANSETRON HCL 4 MG/2 ML VIAL IVP PRN (01:00)
[2017-03-09] MEDS ORDERED: D5/0.45 NS 1,000 ML IV SCH (01:00)
[2017-03-09 01:41] VITALS: BP_SYST 114
[2017-03-09 04:00] VITALS: BP_SYST 113
[2017-03-09 07:36] VITALS: BP_SYST 91
[2017-03-09] MEDS ORDERED: MORPHINE SULFATE 10 MG/5 ML ORAL SOL. UDC PO SCH (10:00)
[2017-03-09] MEDS ORDERED: FLUCONAZOLE 100 MG TABLET (DIFLUCAN) PO ONE (10:45)
[2017-03-09 11:11] LABS: BASOPHILS % (AUTO) 0.4 % (0.0-2.0); EOSINOPHILS # (AUTO) 0.1 K/uL (0.0-0.4); EOSINOPHILS % (AUTO) 1.4 % (0.0-4.0); HEMATOCRIT 24.5 % (36-54); HEMOGLOBIN 7.9 g/dL (14.0-18.0); LYMPHOCYTES # (AUTO) 0.4 K/uL (1.0-5.5); LYMPHOCYTES % (AUTO) 6.6 % (20.5-51.5); MEAN CORPUSCULAR HEMOGLOBIN 30 pg (27-31); MEAN CORPUSCULAR HGB CONC 32 % (32-36); MEAN CORPUSCULAR VOLUME 92 fL (79.0-98.0); MONOCYTES # (AUTO) 0.8 K/uL (0.0-1.0); MONOCYTES % (AUTO) 12.6 % (1.7-9.3); NEUTROPHILS # (AUTO) 4.8 K/uL (1.8-7.7); PLATELET COUNT (AUTO) 203 K/uL (130-430); RED BLOOD CELL COUNT(AUTO) 2.67 MIL/uL (4.2-6.2); RED CELL DISTRIBUTION WIDTH 17.4 % (9.0-15.0); WHITE BLOOD COUNT (AUTO) 6.1 K/uL (4.8-10.8)
[2017-03-09 11:14] LABS: ANION GAP 8 (5-15); CALCIUM 8.6 mg/dL (8.4-11.0); CHLORIDE 90 mmol/L (98-107); CREATININE 3.85 mg/dL (0.55-1.30); GLUCOSE 149 mg/dL (70-99); POTASSIUM 4.6 mmol/L (3.5-5.1); SODIUM SERUM 126 mmol/L (136-145); UREA NITROGEN, BLOOD 71 mg/dL (8-21)
[2017-03-09] MEDS ORDERED: LEVOFLOXACIN 500 MG/D5W 100 ML IV ONE (12:15)
[2017-03-09] MEDS ORDERED: METOPROLOL TARTRATE 25 MG TABLET PO ONE (12:15)
[2017-03-09 12:18] VITALS: BP_SYST 90
[2017-03-09 16:28] VITALS: BP_SYST 90
[2017-03-09 20:00] VITALS: BP_SYST 97
[2017-03-09] MEDS: traZODone HCL 50 MG TABLET (DESYREL) PO SCH (21:00)
[2017-03-09] MEDS ORDERED: TAMSULOSIN HCL 0.4 MG CAP PO SCH (21:00)
[2017-03-09] MEDS: LEVOTHYROXINE SODIUM 0.1 MG TABLET PO SCH (21:00)
[2017-03-09] MEDS ORDERED: TEMAZEPAM 15 MG CAPSULE PO SCH (21:00)
[2017-03-09] MEDS: METOPROLOL TARTRATE 25 MG TABLET PO SCH (21:00)
[2017-03-10 00:21] VITALS: BP_SYST 101
[2017-03-10 04:00] VITALS: BP_SYST 98
[2017-03-10 06:55] LABS: BASOPHILS % (AUTO) 0.3 % (0.0-2.0); EOSINOPHILS # (AUTO) 0.1 K/uL (0.0-0.4); EOSINOPHILS % (AUTO) 1.4 % (0.0-4.0); HEMATOCRIT 26.8 % (36-54); HEMOGLOBIN 8.7 g/dL (14.0-18.0); LYMPHOCYTES # (AUTO) 0.4 K/uL (1.0-5.5); LYMPHOCYTES % (AUTO) 5.3 % (20.5-51.5); MEAN CORPUSCULAR HEMOGLOBIN 30 pg (27-31); MEAN CORPUSCULAR HGB CONC 33 % (32-36); MEAN CORPUSCULAR VOLUME 92 fL (79.0-98.0); MONOCYTES % (AUTO) 14.2 % (1.7-9.3); NEUTROPHILS # (AUTO) 5.5 K/uL (1.8-7.7); NEUTROPHILS % (AUTO) 78.8 % (40.0-70.0); PLATELET COUNT (AUTO) 218 K/uL (130-430); RED BLOOD CELL COUNT(AUTO) 2.92 MIL/uL (4.2-6.2); RED CELL DISTRIBUTION WIDTH 15.7 % (9.0-15.0)
[2017-03-10 07:13] LABS: ALANINE AMINOTRANSFERASE 12 U/L (12-78); ALBUMIN 2.5 g/dL (3.4-4.8); ANION GAP 9 (5-15); ASPARTATE AMINOTRANSFERASE 43 U/L (10-37); CALCIUM 8.8 mg/dL (8.4-11.0); CHLORIDE 89 mmol/L (98-107); CREATININE 3.88 mg/dL (0.55-1.30); GLUCOSE 120 mg/dL (70-99); POTASSIUM 4.8 mmol/L (3.5-5.1); SODIUM SERUM 126 mmol/L (136-145); TOTAL BILIRUBIN 1.3 mg/dL (0.0-1.0); TOTAL PROTEIN, SERUM 8.2 g/dL (6.4-8.3); UREA NITROGEN, BLOOD 72 mg/dL (8-21)
[2017-03-10 10:23] VITALS: BP_SYST 104
[2017-03-10] MEDS: FLUCONAZOLE 100 MG TABLET (DIFLUCAN) PO SCH (10:30)
[2017-03-10] MEDS: METOPROLOL TARTRATE 25 MG TABLET PO SCH ×2 (10:32→20:51)
[2017-03-10 13:14] VITALS: BP_SYST 97
[2017-03-10] MEDS ORDERED: LEVOFLOXACIN 500 MG/D5W 100 ML IV ONE (14:30)
[2017-03-10] MEDS: cefTRIAXone 1 GM in D5W 50 ML IV SCH (17:31)
[2017-03-10 20:00] VITALS: BP_SYST 99
[2017-03-10] MEDS: TAMSULOSIN HCL 0.4 MG CAP PO SCH (20:47)
[2017-03-10] MEDS: TEMAZEPAM 7.5 MG CAPSULE PO SCH (20:47)
[2017-03-10] MEDS: traZODone HCL 50 MG TABLET (DESYREL) PO SCH (20:51)
[2017-03-10] MEDS: ACETAMINOPHEN 325 MG TABLET PO PRN (20:57)
[2017-03-10 21:00] VITALS: BP_SYST 99
[2017-03-10] MEDS: LEVOTHYROXINE SODIUM 0.1 MG TABLET PO SCH (22:56)
[2017-03-11] VITALS (7 sets, daily range): BP systolic 88–152
[2017-03-11] MEDS: ACETAMINOPHEN 325 MG TABLET PO PRN ×2 (02:43→10:24)
[2017-03-11 07:37] LABS: BASOPHILS % (AUTO) 0.4 % (0.0-2.0); EOSINOPHILS # (AUTO) 0.1 K/uL (0.0-0.4); EOSINOPHILS % (AUTO) 1.5 % (0.0-4.0); HEMATOCRIT 24.8 % (36-54); HEMOGLOBIN 8.2 g/dL (14.0-18.0); LYMPHOCYTES # (AUTO) 0.4 K/uL (1.0-5.5); LYMPHOCYTES % (AUTO) 6.4 % (20.5-51.5); MEAN CORPUSCULAR HEMOGLOBIN 30 pg (27-31); MEAN CORPUSCULAR HGB CONC 33 % (32-36); MEAN CORPUSCULAR VOLUME 92 fL (79.0-98.0); MONOCYTES % (AUTO) 13.7 % (1.7-9.3); NEUTROPHILS # (AUTO) 5.5 K/uL (1.8-7.7); PLATELET COUNT (AUTO) 199 K/uL (130-430); RED BLOOD CELL COUNT(AUTO) 2.71 MIL/uL (4.2-6.2); RED CELL DISTRIBUTION WIDTH 16.5 % (9.0-15.0)
[2017-03-11 07:43] LABS: ANION GAP 10 (5-15); CALCIUM 8.3 mg/dL (8.4-11.0); CHLORIDE 88 mmol/L (98-107); CREATININE 3.64 mg/dL (0.55-1.30); GLUCOSE 102 mg/dL (70-99); SODIUM SERUM 123 mmol/L (136-145); UREA NITROGEN, BLOOD 73 mg/dL (8-21)
[2017-03-11] MEDS: METOPROLOL TARTRATE 25 MG TABLET PO SCH ×2 (09:00→20:14)
[2017-03-11] MEDS: FLUCONAZOLE 100 MG TABLET (DIFLUCAN) PO SCH (10:18)
[2017-03-11] MEDS: TAMSULOSIN HCL 0.4 MG CAP PO SCH ×2 (10:18→20:13)
[2017-03-11] MEDS: cefTRIAXone 1 GM in D5W 50 ML IV SCH (15:30)
[2017-03-11] MEDS: traZODone HCL 50 MG TABLET (DESYREL) PO SCH (20:13)
[2017-03-11] MEDS: LEVOTHYROXINE SODIUM 0.1 MG TABLET PO SCH (20:13)
[2017-03-11] MEDS: TEMAZEPAM 7.5 MG CAPSULE PO SCH (20:13)
[2017-03-12 00:12] VITALS: BP_SYST 100
[2017-03-12] MEDS: ACETAMINOPHEN 325 MG TABLET PO PRN ×2 (02:26→09:14)
[2017-03-12 03:27] VITALS: BP_SYST 106
[2017-03-12 08:00] VITALS: BP_SYST 102
[2017-03-12] MEDS: METOPROLOL TARTRATE 25 MG TABLET PO SCH (09:00)
[2017-03-12] MEDS: TAMSULOSIN HCL 0.4 MG CAP PO SCH (09:08)
[2017-03-12] MEDS: FLUCONAZOLE 100 MG TABLET (DIFLUCAN) PO SCH (09:09)
[2017-03-12 12:55] VITALS: BP_SYST 93
[2017-03-12 13:49] VITALS: BP_SYST 93
== END 2017-03-12 15:00 | disposition hospice, home (50) | DRG 682 ==
LOC: SED 21:08 → STU 03-09 00:54 → SMU 03-09 22:22
PROVIDERS: ADMIT Internal Medicine; ATTEND Internal Medicine
PROC: 30233N1 Transfusion of Nonautologous Red Blood Cells into Peripheral Vein, Percutaneous Approach (ICD-10-PCS; principal; 2017-03-09)
DX: N17.0 Acute kidney failure with tubular necrosis (principal); I50.43 Acute on chronic combined systolic (congestive) and diastolic (congestive) heart failure; I13.0 Hypertensive heart and chronic kidney disease with heart failure and stage 1 through stage 4 chronic kidney disease, or unspecified chronic kidney disease; E87.1 Hypo-osmolality and hyponatremia; J44.1 Chronic obstructive pulmonary disease with (acute) exacerbation; N39.0 Urinary tract infection, site not specified; E44.1 Mild protein-calorie malnutrition; J90 Pleural effusion, not elsewhere classified; I42.9 Cardiomyopathy, unspecified; K52.9 Noninfective gastroenteritis and colitis, unspecified; E86.0 Dehydration; N18.9 Chronic kidney disease, unspecified; I35.0 Nonrheumatic aortic (valve) stenosis; K74.60 Unspecified cirrhosis of liver; E03.9 Hypothyroidism, unspecified; L89.159 Pressure ulcer of sacral region, unspecified stage; I87.8 Other specified disorders of veins; I25.10 Atherosclerotic heart disease of native coronary artery without angina pectoris; F32.9 Major depressive disorder, single episode, unspecified; D63.8 Anemia in other chronic diseases classified elsewhere; R62.7 Adult failure to thrive; Z66 Do not resuscitate; Z88.1 Allergy status to other antibiotic agents; Z79.899 Other long term (current) drug therapy; Z68.25 Body mass index [BMI] 25.0-25.9, adult
CPT/HCPCS: 36415; 80048; 80053; 81000-TC; 83690-TC; 85025; 85610-TC; 85730-TC; 86886; 86900; 86901; 86920; 87081; 87086; 93005; 93970; 96361; 96365; 96375; 97116-GP; 99285; J0456; J0696; J0780; J1956; J7030; J7050; J7060; P9021